=== PATIENT | female | born 1975 | race Two or more races ===

== ENCOUNTER 2020-06-01 16:51 | Inpatient (IN) | payer MEDICAID, OTHER ==
[~2020-06-01] VITALS: Ht 154.9 cm; Wt 69.7 kg
[2020-06-01] MEDS ORDERED: ONDANSETRON HCL 4 MG/2 ML VIAL IV ONE (17:15)
[2020-06-01] MEDS ORDERED: SODIUM CHLORIDE 0.9% 1,000 ML IV ONE ×2 (17:15)
[2020-06-01 18:06] LABS: Albumin 1.7 g/dL (3.4-5.0); Anion Gap 9 (5-15); Blood Urea Nitrogen 14 mg/dL (7-18); Calcium 8.3 mg/dL (8.5-10.1); Carbon Dioxide 24 mmol/L (21-32); Chloride 100 mmol/L (98-107); Glucose 87 mg/dL (74-106); Hemoglobin 11.2 g/dL (12.2-16.2); Magnesium 1.9 mg/dL (1.6-2.6); Potassium 3.6 mmol/L (3.5-5.1); Sodium 133 mmol/L (136-145)
[2020-06-01 18:07] LABS: Hematocrit 33.2 % (36.0-46.0); Mean Corpuscular Hemoglobin 35.1 pg (28.0-32.0); Mean Corpuscular Hgb Conc. 33.6 g/dL (32.0-36.0); Mean Corpuscular Volume 104.4 fL (80.0-100.0); Red Blood Cells 3.18 10^6/uL (4.0-5.20); White Blood Cell 20.4 10^3/uL (4.4-10.8)
[2020-06-01 18:22] LABS: Alanine Aminotransferase 32 U/L (13-56); Alkaline Phosphatase 1332 U/L (45-117); Aspartate Aminotransferase 418 U/L (15-37); BUN/Creatinine Ratio 19.2; Bilirubin, Total 1.8 mg/dL (0.2-1.0); GFR African American 111 mL/min; GFR Non-African American 92 mL/min; Total Protein 6.5 g/dL (6.4-8.2)
[2020-06-01 18:28] LABS: INR 1.39 (0.9-1.15); Partial Thromboplastin Time 35.3 sec (23.0-31.2)
[2020-06-01 18:52] LABS: Basophils % (manual) 0 (0.0-2.0); Blast Cells 0; Promyelocytes % 0; Reactive Lymphocytes 0; Red Cell Distribution Width 22.9 % (11.8-14.3)
[2020-06-01 19:23] LABS: Band Neutrophils % (manual) 26; Eosinophils % (manual) 2 (0-7); Lymphocytes % (manual) 17 (10.0-50.0); Metamyelocytes % 3; Monocytes % (manual) 5 (0-12); Myelocytes % 4
[2020-06-01] MEDS ORDERED: NITROGLYCERIN 0.4 MG SL TAB SL PRN (22:00)
[2020-06-01] MEDS ORDERED: ACETAMINOPHEN 500 MG TAB PO PRN (22:00)
[2020-06-01] MEDS ORDERED: MORPHINE SULFATE INJECTION 2 MG/ML SYRG IV PRN (22:00)
[2020-06-01] MEDS ORDERED: SODIUM CHLORIDE 0.9% 500 ML IV ONE (22:00)
[2020-06-01] MEDS ORDERED: DOCUSATE CALCIUM 240 MG CAP PO PRN (22:00)
[2020-06-01] MEDS ORDERED: ONDANSETRON HCL 4 MG/2 ML VIAL IV PRN (22:00)
[2020-06-02] MEDS: SODIUM CHLORIDE 0.9% 1,000 ML IV SCH ×2 (00:21→11:23)
[2020-06-02] MEDS: LORazepam 0.5 MG TAB PO PRN (05:21)
[2020-06-02 06:25] LABS: Hematocrit 33.7 % (36.0-46.0); Hemoglobin 11.1 g/dL (12.2-16.2); Mean Corpuscular Hemoglobin 35.2 pg (28.0-32.0); Mean Corpuscular Hgb Conc. 33.1 g/dL (32.0-36.0); Mean Corpuscular Volume 106.5 fL (80.0-100.0); Red Blood Cells 3.16 10^6/uL (4.0-5.20); White Blood Cell 19.3 10^3/uL (4.4-10.8)
[2020-06-02 06:39] LABS: Albumin 1.7 g/dL (3.4-5.0); Calcium 8.2 mg/dL (8.5-10.1); Potassium 3.6 mmol/L (3.5-5.1)
[2020-06-02 06:43] LABS: Red Cell Distribution Width 23.4 % (11.8-14.3)
[2020-06-02 06:58] LABS: BUN/Creatinine Ratio 23.3; Bilirubin, Total 2.1 mg/dL (0.2-1.0); Total Protein 6.2 g/dL (6.4-8.2); Uric Acid 9.9 mg/dL (2.6-6.0)
[2020-06-02 07:29] LABS: Basophils % (manual) 0 (0.0-2.0); Blast Cells 0; Metamyelocytes % 0; Promyelocytes % 0; Reactive Lymphocytes 0
[2020-06-02 07:32] LABS: Band Neutrophils % (manual) 8; Eosinophils % (manual) 2 (0-7); Lymphocytes % (manual) 21 (10.0-50.0); Monocytes % (manual) 3 (0-12); Myelocytes % 2
[2020-06-02] MEDS: PANTOPRAZOLE 40 MG TAB PO SCH (08:47)
[2020-06-02] MEDS: ENOXAPARIN SOD 40 MG/0.4 ML SYRINGE SC SCH (08:47)
[2020-06-02] MEDS ORDERED: LORazepam 0.5 MG TAB PO ONE (11:30)
[2020-06-02] MEDS: CALCIUM CARB 500 MG CHEW TAB PO SCH (18:06)
[2020-06-02] MEDS: Ensure HIGH Protein Chocolate 8oz Bottle PO SCH (18:10)
[2020-06-02] MEDS ORDERED: LABETALOL HCL 5 MG/ML 4ML SYRINGE IV ONE ×2 (19:59→20:00)
[2020-06-02 21:00] VITALS: BP 125/75
[2020-06-02] MEDS: MORPHINE SULFATE INJECTION 2 MG/ML SYRG IV PRN (21:20)
[2020-06-03] MEDS ORDERED: TRAM50TA2 PO (00:27)
[2020-06-03] MEDS ORDERED: METO25TA5 PO (00:27)
[2020-06-03] MEDS ORDERED: DILT60TA PO (00:27)
[2020-06-03] MEDS ORDERED: HYDR-4069 PO (00:27)
[2020-06-03] MEDS ORDERED: CAPE1TAB11 PO (00:27)
[2020-06-03 07:17] LABS: Hematocrit 31.2 % (36.0-46.0); Hemoglobin 9.7 g/dL (12.2-16.2); Mean Corpuscular Hemoglobin 35.2 pg (28.0-32.0); Mean Corpuscular Hgb Conc. 30.9 g/dL (32.0-36.0); Mean Corpuscular Volume 113.8 fL (80.0-100.0); Potassium 3.3 mmol/L (3.5-5.1); Red Blood Cells 2.74 10^6/uL (4.0-5.20); White Blood Cell 16.1 10^3/uL (4.4-10.8)
[2020-06-03 07:21] LABS: Red Cell Distribution Width 23.5 % (11.8-14.3)
[2020-06-03 07:22] LABS: Albumin 1.5 g/dL (3.4-5.0); BUN/Creatinine Ratio 18.6; Bilirubin, Total 2.5 mg/dL (0.2-1.0); Calcium 7.5 mg/dL (8.5-10.1); Total Protein 5.5 g/dL (6.4-8.2)
[2020-06-03 07:23] LABS: Basophils % (manual) 0 (0.0-2.0); Blast Cells 0; Promyelocytes % 0; Reactive Lymphocytes 0
[2020-06-03 08:00] VITALS: BP 138/77
[2020-06-03] MEDS: MORPHINE SULFATE INJECTION 2 MG/ML SYRG IV PRN ×4 (08:20→22:22)
[2020-06-03] MEDS: CALCIUM CARB 500 MG CHEW TAB PO SCH ×3 (08:34→17:22)
[2020-06-03] MEDS: Ensure HIGH Protein Chocolate 8oz Bottle PO SCH ×3 (08:34→17:22)
[2020-06-03] MEDS: ENOXAPARIN SOD 40 MG/0.4 ML SYRINGE SC SCH (10:00)
[2020-06-03] MEDS: LABETALOL HCL 5 MG/ML 4ML SYRINGE IV PRN ×3 (10:15→21:18)
[2020-06-03] MEDS: PANTOPRAZOLE 40 MG TAB PO SCH (10:15)
[2020-06-03 12:00] VITALS: BP 110/73
[2020-06-03 12:28] LABS: Urine Amorphous Crystal FEW /hpf (None Seen); Urine Bacteria NONE SEEN /hpf (None Seen); Urine Blood Negative /uL (Negative); Urine Mucus FEW (None Seen); Urine Specific Gravity 1.021 (1.001-1.035); Urine WBC 3 /hpf (0 - 5)
[2020-06-03 12:37] LABS: Band Neutrophils % (manual) 17; Eosinophils % (manual) 3 (0-7); Lymphocytes % (manual) 9 (10.0-50.0); Metamyelocytes % 5; Monocytes % (manual) 3 (0-12); Myelocytes % 3
[2020-06-03] MEDS: SODIUM CHLORIDE 0.9% 1,000 ML IV SCH (14:27)
[2020-06-03] MEDS: LORazepam 0.5 MG TAB PO PRN ×2 (15:31→23:10)
[2020-06-03 16:00] VITALS: BP 121/71
[2020-06-03] MEDS ORDERED: IOHEXOL 350 MG/ML 100ML IJ ONE (16:08)
[2020-06-03] MEDS ORDERED: POTASSIUM EFFERVESENT TAB 25 MEQ PO ONE (16:15)
[2020-06-03 22:00] VITALS: BP 124/81
[2020-06-04] MEDS: SODIUM CHLORIDE 0.9% 1,000 ML IV SCH (03:20)
[2020-06-04] MEDS: MORPHINE SULFATE INJECTION 2 MG/ML SYRG IV PRN ×4 (04:37→21:12)
[2020-06-04] MEDS: LABETALOL HCL 5 MG/ML 4ML SYRINGE IV PRN ×3 (04:38→21:07)
[2020-06-04 05:00] VITALS: BP 122/79
[2020-06-04 07:44] LABS: Albumin 1.4 g/dL (3.4-5.0); Calcium 7.9 mg/dL (8.5-10.1); Potassium 3.3 mmol/L (3.5-5.1)
[2020-06-04 07:45] LABS: Hematocrit 26.8 % (36.0-46.0); Mean Corpuscular Hgb Conc. 33.5 g/dL (32.0-36.0); White Blood Cell 16.9 10^3/uL (4.4-10.8)
[2020-06-04 07:46] LABS: Mean Corpuscular Hemoglobin 35.6 pg (28.0-32.0); Mean Corpuscular Volume 106.4 fL (80.0-100.0); Red Blood Cells 2.51 10^6/uL (4.0-5.20)
[2020-06-04 07:54] LABS: Red Cell Distribution Width 22.9 % (11.8-14.3)
[2020-06-04 07:55] LABS: Basophils % (manual) 0 (0.0-2.0); Blast Cells 0; Promyelocytes % 0; Reactive Lymphocytes 0
[2020-06-04 08:01] LABS: BUN/Creatinine Ratio 22.2; Total Protein 5.5 g/dL (6.4-8.2)
[2020-06-04] MEDS: Ensure HIGH Protein Chocolate 8oz Bottle PO SCH ×3 (08:44→17:25)
[2020-06-04 09:00] VITALS: BP 114/74
[2020-06-04 09:21] LABS: Eosinophils % (manual) 4 (0-7); Lymphocytes % (manual) 12 (10.0-50.0); Metamyelocytes % 5; Monocytes % (manual) 9 (0-12); Myelocytes % 3
[2020-06-04 09:22] LABS: Band Neutrophils % (manual) 13
[2020-06-04] MEDS: CALCIUM CARB 500 MG CHEW TAB PO SCH ×3 (10:04→17:25)
[2020-06-04] MEDS: ENOXAPARIN SOD 40 MG/0.4 ML SYRINGE SC SCH (10:05)
[2020-06-04] MEDS: PANTOPRAZOLE 40 MG TAB PO SCH (10:05)
[2020-06-04] MEDS ORDERED: SODIUM CHLORIDE 0.9% 1,000 ML IV SCH (12:30)
[2020-06-04] MEDS ORDERED: FUROSEMIDE 40 MG/4 ML VIAL IV ONE (14:30)
[2020-06-04 17:59] LABS: Hemoglobin 9.5 g/dL (12.2-16.2); Red Blood Cells 2.67 10^6/uL (4.0-5.20); White Blood Cell 18.5 10^3/uL (4.4-10.8)
[2020-06-04 18:01] LABS: Mean Corpuscular Hemoglobin 35.4 pg (28.0-32.0); Mean Corpuscular Hgb Conc. 33.7 g/dL (32.0-36.0)
[2020-06-04 18:16] LABS: Red Cell Distribution Width 22.4 % (11.8-14.3)
[2020-06-04 18:18] LABS: Basophils % (manual) 0 (0.0-2.0); Blast Cells 0; Lactic Acid w/Reflex 2.8 mmol/L (0.4-2.0); Reactive Lymphocytes 0
[2020-06-04 18:28] LABS: % Iron Saturation 68.4 % (15-50); Iron 91 ug/dL (50-170); Total Iron Binding Capacity 133 ug/dL (250-450)
[2020-06-04 18:34] LABS: Ferritin > 1650.0 ng/mL (10-322)
[2020-06-04 20:25] LABS: Band Neutrophils % (manual) 12; Eosinophils % (manual) 1 (0-7); Lymphocytes % (manual) 18 (10.0-50.0); Metamyelocytes % 11; Monocytes % (manual) 2 (0-12); Myelocytes % 2; Promyelocytes % 1
[2020-06-04 23:54] VITALS: BP 114/73
[2020-06-05] MEDS: LORazepam 0.5 MG TAB PO PRN (00:33)
[2020-06-05] MEDS: LABETALOL HCL 5 MG/ML 4ML SYRINGE IV PRN ×3 (01:42→21:25)
[2020-06-05 05:30] VITALS: BP_SYST 102; BP_SYST 141; BP_DIAS 69; BP_DIAS 70
[2020-06-05 07:30] LABS: Hematocrit 25.8 % (36.0-46.0); Hemoglobin 8.7 g/dL (12.2-16.2); Mean Corpuscular Hemoglobin 35.8 pg (28.0-32.0); Mean Corpuscular Hgb Conc. 33.6 g/dL (32.0-36.0); Mean Corpuscular Volume 106.6 fL (80.0-100.0); Red Blood Cells 2.42 10^6/uL (4.0-5.20)
[2020-06-05 07:39] LABS: INR 1.51 (0.9-1.15)
[2020-06-05 07:44] LABS: Potassium 3.1 mmol/L (3.5-5.1)
[2020-06-05 07:46] LABS: Red Cell Distribution Width 22.6 % (11.8-14.3)
[2020-06-05 07:47] LABS: Basophils % (manual) 0 (0.0-2.0); Reactive Lymphocytes 0
[2020-06-05 07:48] LABS: Albumin 1.3 g/dL (3.4-5.0); BUN/Creatinine Ratio 19.3; Calcium 8.2 mg/dL (8.5-10.1)
[2020-06-05 08:00] VITALS: BP 108/64
[2020-06-05] MEDS: Ensure HIGH Protein Chocolate 8oz Bottle PO SCH ×3 (08:00→18:00)
[2020-06-05] MEDS: CALCIUM CARB 500 MG CHEW TAB PO SCH ×3 (08:00→18:00)
[2020-06-05] MEDS ORDERED: GADOTERATE MEG 7.5 MMOL/15ml INJ (0.5MMOL/ml) IV ONE (08:02)
[2020-06-05 08:03] LABS: Bilirubin, Total 3.5 mg/dL (0.2-1.0); Total Protein 5.2 g/dL (6.4-8.2)
[2020-06-05 08:27] LABS: Band Neutrophils % (manual) 12; Blast Cells 1; Eosinophils % (manual) 1 (0-7); Lymphocytes % (manual) 26 (10.0-50.0); Metamyelocytes % 1; Monocytes % (manual) 7 (0-12); Myelocytes % 3; Promyelocytes % 2
[2020-06-05] MEDS: MORPHINE SULFATE INJECTION 2 MG/ML SYRG IV PRN ×3 (09:08→21:25)
[2020-06-05 11:47] LABS: Folate (Folic Acid) 5.67 ng/mL (5.38-24)
[2020-06-05 12:00] VITALS: BP 117/77
[2020-06-05] MEDS: PANTOPRAZOLE 40 MG TAB PO SCH (12:16)
[2020-06-05] MEDS ORDERED: MORPHINE SULFATE INJECTION 2 MG/ML SYRG IV ONE (14:45)
[2020-06-05 16:00] VITALS: BP 103/69
[2020-06-05 22:00] VITALS: BP 135/74
[2020-06-06] VITALS (17 sets, daily range): BP systolic 94–122; BP diastolic 40–79
[2020-06-06] MEDS: LORazepam 0.5 MG TAB PO PRN ×2 (01:04→14:28)
[2020-06-06] MEDS: MORPHINE SULFATE INJECTION 2 MG/ML SYRG IV PRN ×5 (01:53→22:00)
[2020-06-06] MEDS: LABETALOL HCL 5 MG/ML 4ML SYRINGE IV PRN (01:54)
[2020-06-06 06:29] LABS: Hematocrit 25.9 % (36.0-46.0); Hemoglobin 8.8 g/dL (12.2-16.2); Mean Corpuscular Hgb Conc. 33.8 g/dL (32.0-36.0); Mean Corpuscular Volume 106.5 fL (80.0-100.0); Red Blood Cells 2.43 10^6/uL (4.0-5.20)
[2020-06-06 06:45] LABS: Albumin 1.4 g/dL (3.4-5.0); Calcium 8.6 mg/dL (8.5-10.1); Potassium 3.5 mmol/L (3.5-5.1)
[2020-06-06 06:47] LABS: Basophils % (manual) 0 (0.0-2.0); Blast Cells 0; Reactive Lymphocytes 0; Red Cell Distribution Width 22.4 % (11.8-14.3)
[2020-06-06 07:02] LABS: BUN/Creatinine Ratio 26.7; Bilirubin, Total 4.7 mg/dL (0.2-1.0); Total Protein 5.3 g/dL (6.4-8.2)
[2020-06-06] MEDS: Ensure HIGH Protein Chocolate 8oz Bottle PO SCH ×3 (08:00→18:00)
[2020-06-06] MEDS: CALCIUM CARB 500 MG CHEW TAB PO SCH ×3 (08:00→18:00)
[2020-06-06 08:24] LABS: Band Neutrophils % (manual) 8; Eosinophils % (manual) 1 (0-7); Lymphocytes % (manual) 20 (10.0-50.0); Metamyelocytes % 9; Monocytes % (manual) 11 (0-12); Myelocytes % 6; Promyelocytes % 3
[2020-06-06 08:27] LABS: White Blood Cell 16.5 10^3/uL (4.4-10.8)
[2020-06-06] MEDS: PANTOPRAZOLE 40 MG TAB PO SCH (10:00)
[2020-06-07 05:00] VITALS: BP 118/61
[2020-06-07] MEDS: MORPHINE SULFATE INJECTION 2 MG/ML SYRG IV PRN (06:53)
[2020-06-07] MEDS: Ensure HIGH Protein Chocolate 8oz Bottle PO SCH ×2 (08:00→12:00)
[2020-06-07] MEDS: CALCIUM CARB 500 MG CHEW TAB PO SCH ×2 (08:00→12:00)
[2020-06-07] MEDS: LABETALOL HCL 5 MG/ML 4ML SYRINGE IV PRN (08:57)
[2020-06-07 09:11] VITALS: BP 101/56
[2020-06-07] MEDS: PANTOPRAZOLE 40 MG TAB PO SCH (10:00)
[2020-06-07 12:14] VITALS: BP 101/56
[2020-06-07 13:00] VITALS: BP 106/58
[2020-06-07] MEDS: LORazepam 0.5 MG TAB PO PRN (13:29)
== END 2020-06-07 17:00 | disposition hospice, home (50) | DRG 382 ==
LOC: ER 16:51 → TELE 16:52 → TELE-WESTW 06-02 20:53
PROVIDERS: ADMIT Family Medicine; ATTEND Internal Medicine
PROC: 30233R1 Transfusion of Nonautologous Platelets into Peripheral Vein, Percutaneous Approach (ICD-10-PCS; principal; 2020-06-06)
PROC: 0W9B30Z Drainage of Left Pleural Cavity with Drainage Device, Percutaneous Approach (ICD-10-PCS; 2020-06-06)
DX: C50.911 Malignant neoplasm of unspecified site of right female breast (principal); E43 Unspecified severe protein-calorie malnutrition; J96.01 Acute respiratory failure with hypoxia; E87.1 Hypo-osmolality and hyponatremia; C79.51 Secondary malignant neoplasm of bone; E83.51 Hypocalcemia; G89.3 Neoplasm related pain (acute) (chronic); E87.6 Hypokalemia; Z51.5 Encounter for palliative care; I10 Essential (primary) hypertension; I95.0 Idiopathic hypotension; C78.7 Secondary malignant neoplasm of liver and intrahepatic bile duct; C79.31 Secondary malignant neoplasm of brain; C79.49 Secondary malignant neoplasm of other parts of nervous system; D63.8 Anemia in other chronic diseases classified elsewhere; D68.9 Coagulation defect, unspecified; D69.6 Thrombocytopenia, unspecified; D72.829 Elevated white blood cell count, unspecified; J98.11 Atelectasis; M84.48XA Pathological fracture, other site, initial encounter for fracture; J90 Pleural effusion, not elsewhere classified; Z79.899 Other long term (current) drug therapy; Z85.3 Personal history of malignant neoplasm of breast; Z90.11 Acquired absence of right breast and nipple; Z90.49 Acquired absence of other specified parts of digestive tract; Z98.82 Breast implant status; R79.89 Other specified abnormal findings of blood chemistry; R74.8 Abnormal levels of other serum enzymes; Z20.822 Contact with and (suspected) exposure to COVID-19; T46.5X5A Adverse effect of other antihypertensive drugs, initial encounter
CPT/HCPCS: 10022; 36415; 70450; 70553; 71045; 71275; 74176; 76604; 76942; 80053; 81001; 81025; 82607; 82728; 82746; 83540; 83550; 83605; 83615; 83735; 83880; 83986; 84443; 84484; 84550; 85007; 85025; 85027; 85610; 85652; 85730; 86850; 86900; 86901; 87040; 87070; 87081; 87086; 87205; 87426; 89051; 93005; 93970; 96361; 96374; G0378; J2405; J3490